=== PATIENT | male | born 1970 | race Caucasian/White ===

== ENCOUNTER 2017-11-24 10:08 | Emergency (ER) | payer OTHER ==
[2017-11-24 10:31] VITALS: BP 154/96
--- NOTE | 2017-11-24 10:39 | UC ---
Respiratory Complaint HPI - HPI Summary HPI Summary: 47M presents with cough today. He states that the his son and finance have had the flu so he wants to get tested. He denies any muscle aches. He denies any fever. He denies any sinus congestion or sore throat. He denies any abdominal pain, nausea or vomiting. He has not taken anything for his symptoms. He only has HTN. - History of Current Complaint Chief Complaint: UCRespiratory Stated Complaint: COUGH Time Seen by Provider: 11/24/17 10:34 Pain Intensity: 0 - Allergies/Home Medications Allergies/Adverse Reactions: Allergies Allergy/AdvReac Type Severity Reaction Status Date / Time No Known Allergies Allergy Verified 11/24/17 10:31 Home Medications: Home Medications Metoprolol Succinate [Toprol Xl] 50 11/24/17 [History] PMH/Surg Hx/FS Hx/Imm Hx Endocrine History: Other Other Endocrine History: no DM Cardiovascular History: Hypertension - Surgical History Surgical History: None Surgery Procedure, Year, and Place: TONSILS - Family History Known Family History: Positive: Hypertension - Social History Alcohol Use: Occasionally Substance Use Type: None Smoking Status (MU): Never Smoked Tobacco Type: Smokeless Tobacco Review of Systems Constitutional: Negative Respiratory: Cough Cardiovascular: Negative All Other Systems Reviewed And Are Negative: Yes Physical Exam Triage Information Reviewed: Yes Appearance: Well-Appearing Vital Signs: Initial Vital Signs Temp 98.1 F 11/24/17 10:26 Pulse 73 11/24/17 10:26 Resp 18 11/24/17 10:26 BP 154/96 11/24/17 10:26 Pulse Ox 100 11/24/17 10:26 Vital Signs Reviewed: Yes Eye Exam: Normal ENT: Positive: Normal ENT inspection, Pharynx normal, TMs normal Neck: Positive: Supple, Nontender, No Lymphadenopathy Respiratory: Positive: Lungs clear, Normal breath sounds Cardiovascular: Positive: RRR Abdomen Description: Positive: Nontender, Soft Bowel Sounds: Positive: Present Musculoskeletal Exam: Normal Neurological Exam: Normal Psychological Exam: Normal Skin Exam: Normal UC Diagnostic Evaluation - Laboratory O2 Sat by Pulse Oximetry: 100 Respiratory Course/Dx - Course Course Of Treatment: 47M presents with cough today. He states that the his son and finance have had the flu so he wants to get tested. He denies any muscle aches. He denies any fever. He denies any sinus congestion or sore throat. He denies any abdominal pain, nausea or vomiting. He has not taken anything for his symptoms. He only has HTN. on exam lungs CTA. flu neg medication reviewed. patient will follow up with primary about blood pressure as has history of HTN. will not treat ppx for flu as no significant medical conditions to make worth treating. patient understand and agrees with plan. - Differential Dx/Diagnosis Differential Diagnosis/HQI/PQRI: Bronchitis, Influenza, Lower Resp Infection Provider Diagnoses: flu exposure, high blood pressure, cough Discharge - Discharge Plan Condition: Good Disposition: HOME Referrals: [facility] [place] [facility] [Outside] Additional Instructions: Your flu was negative today Make sure you wash your hands Can try allergy medication or OTC cough medication for the cough Follow up with primary about elevated blood pressure Return to urgent care if develop any new or worsening symptoms
== END 2017-11-24 11:08 | disposition home or self-care (01) ==
LOC: UCCORT 10:08
DX: R05 Cough (principal); Z20.828 Contact with and (suspected) exposure to other viral communicable diseases; I10 Essential (primary) hypertension
CPT/HCPCS: 87502; 99201; G0463